=== PATIENT | female | born 1945 | race Caucasian/White ===

== ENCOUNTER 2019-07-18 10:44 | Outpatient (CLI) | payer MEDICARE ==
--- NOTE | 2019-07-18 12:11 | MMO ---
Bilateral MAMMO Bilat Screen [facility]. CLINICAL HISTORY: Patient is 73 years old and is seen for screening. The patient has no family history of breast cancer. The patient has no personal history of cancer. VIEWS: The views performed were: bilateral craniocaudal with tomosynthesis; bilateral mediolateral oblique with tomosynthesis; and left mediolateral oblique. FILMS COMPARED: The present examination has been compared to prior imaging studies performed at [facility] on 12/08/2011, 06/06/2013, 01/01/2015 and 05/06/2017. This study has been interpreted with the assistance of computer-aided detection. MAMMOGRAM FINDINGS: There are scattered fibroglandular densities. Finding 1: There are stable benign appearing calcifications seen in both breasts. Finding 2: There are stable benign appearing densities seen in the left breast. There are no suspicious masses, suspicious calcifications, or new areas of architectural distortion. IMPRESSION: THERE IS NO MAMMOGRAPHIC EVIDENCE OF MALIGNANCY. A ROUTINE FOLLOW-UP MAMMOGRAM IN 1 YEAR IS RECOMMENDED. THE RESULTS OF THIS EXAM WERE SENT TO THE PATIENT. ACR BI-RADS Category 2 - Benign finding MAMMOGRAPHY NOTE: 1. A negative mammogram report should not delay a biopsy if a dominant of clinically suspicious mass is present. 2. Approximately 10% to 15% of breast cancers are not detected by mammography. 3. Adenosis and dense breasts may obscure an underlying neoplasm. Reported by: DOV ALARCON MD Electonically Signed: [id number]
== END 2019-07-18 10:45 | disposition home or self-care (01) ==
LOC: BICMAMMO 10:44
PROVIDERS: ATTEND Family Medicine
DX: Z12.31 Encounter for screening mammogram for malignant neoplasm of breast (principal)
CPT/HCPCS: 77063; 77067

== ENCOUNTER 2021-08-27 13:50 | Outpatient (CLI) | payer MEDICARE | END 2021-08-27 13:51 | disposition home or self-care (01) | LOC: BICMAMMO 13:50 | PROVIDERS: ATTEND Family Medicine | DX: Z12.31 Encounter for screening mammogram for malignant neoplasm of breast (principal) | CPT/HCPCS: 77063; 77067 ==

== ENCOUNTER 2021-10-25 15:03 | Inpatient (IN) | payer MEDICARE ==
[~2021-10-25 15:03] MED LIST: Iopamidol 370 76% 50 ML VIAL FS ONE
[2021-10-25] MEDS ORDERED: Dextrose 50% Abboject 50 ML SYRINGE SLOW IVP PRN (17:12)
[2021-10-25] MEDS ORDERED: Ondansetron PF 4 MG/2 ML Vial IVP PRN (17:12)
[2021-10-25] MEDS ORDERED: HumaLOG 300 UNITS/3 ML VIAL SC PRN (17:12)
[2021-10-25] MEDS ORDERED: Calcium Carbonate 500 MG ChewTAB PO PRN (17:12)
[2021-10-25] MEDS ORDERED: Dextrose 5% in Water 1,000 ML IV PRN (17:12)
[2021-10-25] MEDS ORDERED: Bisacodyl 10 MG SUPP PR PRN (17:12)
[2021-10-25] MEDS ORDERED: Guaifenesin DM 100-10/5 ML UDCUP PO PRN (17:12)
[2021-10-25 17:34] VITALS: BMI 33.0
[2021-10-25 18:23] LABS: #Basophils 0.1 thou/uL (0.0-0.2); #Eosinphils 0.3 thou/uL (0.0-0.7); #Lymphocytes 2.4 thou/uL (1.20-3.40); #Monocytes 0.9 thou/uL (0.11-0.59); #Neutrophils 9.4 thou/uL (1.40-6.50); %Basophils 0.5 % (0.0-1.0); %Eosinophils 2.4 % (0.0-10.0); %Lymphocytes 18.2 % (21.0-51.0); Hemoglobin 13.8 g/dL (12.0-16.0); Mean Corpuscular HGB CONC 33.4 g/dL (32.0-36.0); Mean Corpuscular Hemoglobin 33.5 pg (27.0-31.0); Mean Platelet Volume 7.1 fL (7.4-10.4); Platelet Count 298 thou/uL (130-400); RBC Distribution Width 11.8 % (11.5-14.5); Red Blood Cell (RBC) Count 4.12 mill/uL (4.20-5.40)
[2021-10-25 18:32] LABS: Prothrombin Time 13.3 sec (12.0-14.7)
[2021-10-25 18:33] LABS: PTT 30.8 sec (22.9-36.1)
[2021-10-25 18:41] LABS: ALT (SGPT) 31 U/L (8-55); AST (SGOT) 23 U/L (5-34); Albumin 3.8 g/dL (3.4-4.8); Alkaline Phosphatase 83 U/L (40-110); Anion Gap 15 mmol/L (10-20); BUN (Urea Nitrogen) 23 mg/dL (9.8-20.1); Bilirubin, Total 0.4 mg/dL (0.2-1.2); Calc. Creatinine Clearance 71 mL/min (70-130); Calcium 9.6 mg/dL (7.8-10.44); Carbon Dioxide 29 mmol/L (23-31); Chloride 99 mmol/L (98-107); Globulin 3.1 g/dL (2.4-3.5); Glucose 202 mg/dL (83-110); Potassium 3.7 mmol/L (3.5-5.1); Protein, Total 6.9 g/dL (5.8-8.1); Sodium 139 mmol/L (136-145)
[2021-10-25] MEDS: Dexamethasone 4 mg/ml Vial SLOW IVP SCH ×2 (18:44→23:42)
[2021-10-25 20:32] LABS: SARS-CoV-2 NAA Rapid Test Not Detected (NotDetected)
[2021-10-25] MEDS ORDERED: Heparin 5,000 UNITS/ML VIAL SC SCH (21:00)
[2021-10-25] MEDS: Senokot S 8.6-50 MG TAB PO SCH (23:41)
[2021-10-25] MEDS: Lantus 1000 UNITS/10 ML VIAL SC SCH (23:41)
[2021-10-25] MEDS: Pantoprazole 40 MG VIAL IVP SCH (23:42)
[2021-10-26] MEDS: Acetaminophen 325 MG TAB PO PRN (03:17)
[2021-10-26] MEDS: Levothyroxine Sodium 100 MCG TAB PO SCH ×2 (06:09→06:10)
[2021-10-26] MEDS: HumaLOG 300 UNITS/3 ML VIAL SC PRN ×2 (06:10→17:51)
[2021-10-26] MEDS: Dexamethasone 4 mg/ml Vial SLOW IVP SCH ×3 (06:10→17:51)
[2021-10-26] MEDS ORDERED: Lorazepam 2 MG/ML VIAL SLOW IVP SCH ×2 (06:15)
[2021-10-26 07:02] LABS: #Lymphocytes 1.2 thou/uL (1.20-3.40); #Monocytes 0.1 thou/uL (0.11-0.59); #Neutrophils 10.7 thou/uL (1.40-6.50); %Basophils 0.1 % (0.0-1.0); %Eosinophils 0.3 % (0.0-10.0); %Lymphocytes 9.6 % (21.0-51.0); %Monocytes 0.7 % (0.0-10.0); %Neutrophils 89.3 % (42.0-75.0); Hemoglobin 14.1 g/dL (12.0-16.0); Mean Corpuscular HGB CONC 34.2 g/dL (32.0-36.0); Mean Corpuscular Hemoglobin 34.5 pg (27.0-31.0); Mean Platelet Volume 7.1 fL (7.4-10.4); Platelet Count 297 thou/uL (130-400); RBC Distribution Width 11.8 % (11.5-14.5); Red Blood Cell (RBC) Count 4.08 mill/uL (4.20-5.40)
[2021-10-26 07:25] LABS: Anion Gap 17 mmol/L (10-20); BUN (Urea Nitrogen) 22 mg/dL (9.8-20.1); Calc. Creatinine Clearance 76 mL/min (70-130); Calcium 9.8 mg/dL (7.8-10.44); Carbon Dioxide 25 mmol/L (23-31); Chloride 98 mmol/L (98-107); Glucose 232 mg/dL (83-110); Sodium 136 mmol/L (136-145)
[2021-10-26] MEDS: Pantoprazole 40 MG VIAL IVP SCH ×2 (09:18→22:05)
[2021-10-26] MEDS: Fish Oil 1,000 MG CAP PO SCH (09:19)
[2021-10-26] MEDS: Senokot S 8.6-50 MG TAB PO SCH ×2 (09:19→22:05)
[2021-10-26] MEDS: Atenolol 25 MG TAB PO SCH (09:19)
[2021-10-26] MEDS: Lantus 1000 UNITS/10 ML VIAL SC SCH ×2 (09:19→22:05)
[2021-10-26] MEDS ORDERED: Magnevist 469MG/ML 20 ML VIAL ONE (11:08)
[2021-10-27] MEDS: Dexamethasone 4 mg/ml Vial SLOW IVP SCH ×4 (00:31→17:54)
[2021-10-27] MEDS: Acetaminophen 325 MG TAB PO PRN (05:12)
[2021-10-27] MEDS: HumaLOG 300 UNITS/3 ML VIAL SC PRN ×3 (06:17→17:54)
[2021-10-27] MEDS: Levothyroxine Sodium 100 MCG TAB PO SCH (06:20)
[2021-10-27] MEDS: Atenolol 25 MG TAB PO SCH (08:25)
[2021-10-27] MEDS: Fish Oil 1,000 MG CAP PO SCH (08:27)
[2021-10-27] MEDS: Pantoprazole 40 MG VIAL IVP SCH (08:27)
[2021-10-27] MEDS: Lantus 1000 UNITS/10 ML VIAL SC SCH (08:27)
[2021-10-27] MEDS: Senokot S 8.6-50 MG TAB PO SCH (08:27)
[2021-10-27 15:59] VITALS: TEMP 99
[2021-10-27 16:21] VITALS: BP 125/60
== END 2021-10-27 19:30 | disposition short-term general hospital (02) | DRG 54 ==
LOC: NEURO 16:44
PROVIDERS: ADMIT Internal Medicine; ATTEND Internal Medicine
DX: D49.6 Neoplasm of unspecified behavior of brain (principal); G93.6 Cerebral edema; Z20.822 Contact with and (suspected) exposure to COVID-19; I10 Essential (primary) hypertension; E11.9 Type 2 diabetes mellitus without complications; E78.5 Hyperlipidemia, unspecified; M17.11 Unilateral primary osteoarthritis, right knee; E66.9 Obesity, unspecified; E03.9 Hypothyroidism, unspecified; Z90.49 Acquired absence of other specified parts of digestive tract; Z90.710 Acquired absence of both cervix and uterus; Z90.89 Acquired absence of other organs; Z68.33 Body mass index [BMI] 33.0-33.9, adult
CPT/HCPCS: 36415; 36416; 70553; 71260; 74177; 80048; 80053; 83880; 85025; 85610; 85730; 93306; A9579; C9113; J1100; J1644; J1815; J2060; J2405; Q9967; U0002

== ENCOUNTER 2022-09-16 09:59 | Outpatient (CLI) | payer MEDICARE | END 2022-09-16 10:00 | disposition home or self-care (01) | LOC: SCSRAD 09:59 | PROVIDERS: ATTEND Family Medicine | DX: M75.21 Bicipital tendinitis, right shoulder (principal); M19.011 Primary osteoarthritis, right shoulder; M77.8 Other enthesopathies, not elsewhere classified ==

== ENCOUNTER 2022-10-09 15:45 | Outpatient (CLI) | payer MEDICARE | END 2022-10-09 15:46 | disposition home or self-care (01) | LOC: BICMAMMO 15:45 | PROVIDERS: ATTEND Family Medicine | DX: Z12.31 Encounter for screening mammogram for malignant neoplasm of breast (principal); Z85.841 Personal history of malignant neoplasm of brain | CPT/HCPCS: 77063; 77067 ==